=== PATIENT | female | born 1930 | race Caucasian/White ===

== ENCOUNTER 2017-02-15 10:26 | Inpatient (IN) ==
[2017-02-15] MEDS ORDERED: SODIUM CHLORIDE 0.9% 500 ML IV STA (11:00)
[2017-02-15] MEDS ORDERED: ONDANSETRON 4 MG/2 ML VIAL IV STA (11:00)
[2017-02-15 11:07] LABS: Basophils % 0.2 % (0.0-0.8); Eosinophils % 0.4 % (0.00-10.9); Hematocrit 40.1 VOL% (35.7-47.0); Hemoglobin 12.8 GM/DL (12.0-16.0); Immature Granulocytes % 0.5 %; Immature Granulocytes Absolute 0.04 #; Lymphocytes # 1.3 10*3/uL (1.4-4.0); Mean Corpuscular HGB Conc 31.9 GM/DL (32-36); Mean Corpuscular Hemoglobin 27 PG (27-34); Mean Corpuscular Volume 85.5 FL (87-102); Mean Platelet Volume 9.4 FL (9.6-12.0); Monocytes # 0.6 10*3/uL (0.11-0.8); Monocytes % 6.8 % (1.7-12.7); Neutrophils # 6.1 10*3/uL (1.4-7.4); Neutrophils % 76.1 % (38.7-73.9); Platelet Count 375 T/CUMM (130-400); Red Blood Count 4.69 MC/CUMM (3.8-5.5); Red Cell Distribution Width 15.2 % (9.3-17.3); White Blood Count 8.1 T/CUMM (4-12)
[2017-02-15 11:20] LABS: PT Patient Result 10.7 SECS
--- NOTE | 2017-02-15 11:24 | XRay Report ---
XR chest 1V portable Indication: SOB Comparison: None Technique: Single frontal view of the chest. Findings: Moderate cardiomegaly. Prominent hiatal hernia. Mild bibasilar atelectasis and small bilateral pleural fluid. Chronic change of the lungs. Diffuse osteopenia. IMPRESSION: As above. PROCEDURE INTERPRETED AT [facility] DEPARTMENT OF RADIOLOGY Final Report Signed by: Dr Sabas Jackson
[2017-02-15 11:32] LABS: Albumin 2.5 G/DL (3.4-5.0); Bilirubin,Total 0.4 MG/DL (0.2-1.0); Calcium 8.9 MG/DL (8.5-10.1); Magnesium 3.3 MG/DL (1.8-2.4); Osmolality,Calculated 271.2 MOS/KG (273-304); Potassium 4.8 MMOL/L (3.5-5.1); Total Protein 6.8 G/DL (6.4-8.3)
--- NOTE | 2017-02-15 11:35 | CT Report ---
CT abdomen pelvis wo con Indication: Coffee-ground emesis and abdominal distention Comparison: None Technique: Multiple axial tomographic images of the abdomen and pelvis were obtained without the use of intravenous contrast. Findings: Mild dependent change of the lungs present. Small bilateral pleural effusions. No worrisome focal hepatic abnormality. Gallbladder nondistended. Pancreatic atrophic change present. The spleen is grossly unremarkable. The bilateral adrenal glands are grossly unremarkable. The bilateral kidneys are grossly unremarkable. Uterus atrophic change versus partial hysterectomy. The urinary bladder is incompletely distended. Cystic-appearing left adnexal region measuring up to 4.3 cm in largest axial dimension. Colonic diverticulosis. No evidence of gastrointestinal obstruction. Prominent hiatal hernia. Moderate to large abdominal ascites. Peritoneal/mesenteric nodularity/implants noted consistent with diffuse intra-abdominal malignancy/metastasis. This includes under the right hemidiaphragm. Wedger nodular component within the left upper quadrant mesentery measures up to 2.6 cm. Omental disease/caking suspected. Some of the disease appears slightly calcified. Moderate atherosclerotic calcifications demonstrated. Diffuse osteopenia as well as degenerative change of the spine present. IMPRESSION: Limited exam secondary to lack of intravenous and oral contrast material. Moderate to large abdominal ascites. Peritoneal/mesenteric nodularity/implants noted consistent with diffuse intra-abdominal malignancy/metastasis. This includes under the right hemidiaphragm. Wedger nodular component within the left upper quadrant mesentery measures up to 2.6 cm. Omental disease/caking suspected. Cystic-appearing left adnexal region measuring up to 4.3 cm in largest axial dimension. Primary ovarian neoplasm not excluded. Recommend pelvic ultrasound for further evaluation. Colonic diverticulosis, hiatal hernia, and other detailed findings as above. The CT exam was performed using one or more of the following dose reduction techniques: Automated exposure control, adjustment of the mA and/or kV according to patient size, or use of iterative reconstruction technique. PROCEDURE INTERPRETED AT [facility] DEPARTMENT OF RADIOLOGY Final Report Signed by: Dr Sabas Jackson
--- NOTE | 2017-02-15 11:43 | EKG Report ---
Stationary ECG Study [facility] ER Test Date: 02/15/2017 11:43:41 AM Pat Name: HILLARY REDDING Department: Room: Gender: F Program Technician: : [id number] Requested by: Miles Pickard Order Number: [id number] Reading MD: GALO DELEON Intervals [place] Rate: 69 P: 88 AK: 149 QRS: 55 QRSD: 85 T: 68 QT: 398 QTc: 418 Interpretive Statements SINUS RHYTHM Electronically Signed On 02-15-17 17:38:06 CDT by GALO DELEON [email or web address]
--- NOTE | 2017-02-15 11:47 | Emergency Department Note ---
Benny Guerrero Rolonda, am scribing for, and in the presence of, Miles Calderon MD 11:14. Kvng Guerrero Phillip K, MD, personally performed the services described in this documentation, ascribed by Getachew Zapata in my presence, and it is both accurate and complete 143 . Arrival - Arrival Chief Complaint: Nausea/Vomiting/Diarrhea Stated Complaint: spitting up feces ED Nursing Triage Note: Pt c/o "spitting up feces" since last night, states her abd feels full. States her last BM was this am but a small amount, but has been having constipation since last week. Mode of Arrival: Wheelchair Limitations: No Limitations Source: Patient, Old Records Reviewed, RN Notes Reviewed - History of Present Illness HPI Narrative: Pt is an 86 y/o female who presents to the ED via wheelchair with a c/o "spitting up feces" with an onset of last night. Pt has a PMHx of diverticulitis and GERD; was scoped x5 years ago by Dr. Rios. She states that she "feels full", had soft dark stool diarrhea x2 last night and vomiting x1 day ago. Pt confirms cough but denies abdominal pain, dysuria, fever, and UTI. No other complaint/pain in ED. Onset (ago): day(s) Consistency: constant Severity: moderate Severity scale (1-10): 5 Quality: fullness Allergies/Adverse Reactions: Allergies Allergy/AdvReac Type Severity Reaction Status Date / Time morphine Allergy Unknown/Unable Verified 02/15/17 10:29 to obtain Home Medications: Home Medications Medication Instructions Recorded Confirmed Type Cyanocobalamin Inj [Vitamin B12 1,000 mcg SUBCUT DAILY 02/15/17 02/15/17 History Inj] Levothyroxine Tab [Synthroid Tab] 88 mcg PO DAILY 02/15/17 02/15/17 History Losartan/Hydrochlorothiazide 0.5 each PO DAILY 02/15/17 02/15/17 History [Losartan-Hctz 100-12.5 mg Tab] Magnesium Citrate 138 ml PO DAILY 02/15/17 02/15/17 History Metoprolol Tartrate 12.5 mg PO DAILY 02/15/17 02/15/17 History Omeprazole [Prilosec] 20 mg PO BID 02/15/17 02/15/17 History Polyethylene Glycol Powder 17 gm PO DAILY PRN 02/15/17 02/15/17 History [Miralax] Pravastatin Sodium 80 mg PO BEDTIME 02/15/17 02/15/17 History Review of System - Review of System 12 point system: reviewed and no additional remarkable complaints except as stated - Review of System Constitutional: Absent: chills, fever Eyes: Absent: pain Head/Ears/Nose/Throat: Absent: earache Respiratory: Present: cough Cardiovascular: Absent: chest pain, dyspnea on exertion Gastrointestinal: Absent: abdominal pain Genitourinary female: Absent: dysuria Musculoskeletal: Absent: arm pain, back pain, neck pain Medical,Surgical,& Family Hx - Medical History Cardio: History of: Hypertension Endocrine: History of: Dyslipidemia, Thyroid Disorder - Social History Smoking Status: Never smoker Exam Vital Signs: Vital Signs Temperature 97.7 F 02/15/17 10:39 Pulse Rate 70 02/15/17 10:39 Respiratory Rate 16 02/15/17 10:39 Blood Pressure 134/82 02/15/17 10:39 O2 Sat by Pulse Oximetry 97 02/15/17 10:27 - General General appearance: alert, in no apparent distress - Head Head exam: Present: atraumatic, normocephalic - Eye Eye exam: Present: PERRL, EOMI, other (pale conjunctiva) - ENT ENT exam: Present: mucous membranes moist. Absent: normal exam (upper grind hemasis), mucous membranes dry - Neck Neck exam: Present: full ROM. Absent: tenderness - Chest Chest inspection: Present: symmetric chest wall rise. Absent: tenderness - Cardiovascular Cardiovascular exam: Present: irregular rhythm - Abdominal Exam Abdominal exam: Present: distention, hyperactive bowel sounds. Absent: tenderness - Rectal Exam Rectal exam: Present: heme (+) stool - Extremities Exam Extremities exam: Present: full ROM. Absent: tenderness - Back Exam Back exam: Present: full ROM. Absent: tenderness - Neurological Exam Neurological exam: Present: alert, oriented X3, CN II-XII intact - Psychiatric Psychiatric exam: Present: normal affect, normal mood - Skin Skin exam: Present: warm, dry, intact, normal color. Absent: rash Results - Labs CBC & BMP: 02/15/17 10:43 02/15/17 10:43 Lab Results: I have reviewed the patients labs - EKG EKG results: interpreted by LIS, WNL, sinus rhythm - Diagnostic Findings Procedure: CT Abdomen and Pelvis: report reviewed by me (Large amount of ascites , 4 cm left adnexal mass possibly ovarian carcinoma, diffuse peritoneal metastasis) Disposition Clinical Impression: Upper GI bleed, Left tubo-ovarian mass, Ascites, Probable peritoneal metastasis Case discussed with: patient, patient's family Disposition: Still a Patient Condition: Guarded Additional Instructions: Admit to the hospitalist.
--- NOTE | 2017-02-15 12:28 | Hospitalist History & Physical ---
<Maral Christiansonda - Last Filed: 02/15/17 12:14> Assessment and Plan (1) Ascites Status: Acute Assessment and plan: Per CT scan report at the time of admission noted moderate to large abdominal ascites. In addition the patient was noted to have peritoneal and mesenteric nodularity/implants which are largely consistent with diffuse intra-abdominal malignancy/metastasis. The patient is in no obvious distress at this time however, we will consult GI to evaluate and assist. Will obtain abdominal ultrasound; may require interventional radiology for thoracentesis soon. Current Visit: Yes (2) Upper GI bleed Status: Acute Assessment and plan: Heme positive stools and emesis noted in the ED. we will consult GI to evaluate and assist during the clinical encounter. We will keep the patient n.p.o., start PPIs, and DVT prophylaxis. Current Visit: Yes History of Present Illness Chief complaint: Abdominal distention, nausea and vomiting. History of present illness: This is a very pleasant 86-year-old female that presented to the ED at [facility] this morning for the evaluation of nausea, diarrhea, vomiting, and abdominal distention. Patient has a medical history significant for: Hypertension, hypothyroidism, GERD, hyperlipidemia, vitamin B12 deficiency , and constipation Patient has a surgical history significant for: Left knee surgery and tonsillectomy. The patient reported the onset of symptoms several weeks prior to presentation. She reports that she started experiencing some swelling in her stomach however it has worsened as time progressed. The patient reported that she had an onset of vomiting on last night. She reports that the emesis "resembled feces"; however denied abdominal pain and tenderness. Pertinent positives include: Nausea, vomiting, diarrhea, abdominal distention; pertinent negatives include: Diaphoresis, syncope, abdominal tenderness, abdominal pain, dysuria, anuria, and constipation. At the time of ED presentation, the patient was assessed. Her vital signs were stable at the time of ED presentation. Labs were obtained at the time of ED presentation; complete blood count noted a white blood cell count 8.1, hemoglobin 12.8, hematocrit 40.1, platelet count at 375, neutrophil % 76.1, MVP 9.4, lymphocytes % 16.0, lymphocytes #at 1.0. Coagulation panel reported an INR at 1.0 and PT 10.7. Chemistry profile reported a sodium at 134, potassium 4.8, chloride 99, carbon dioxide 27, BUN 24, creatinine 1.10, glucose 102, calculated osmolality 271.2, magnesium 3.3, total bilirubin 0.40, AST 16, ALT 14 , alkaline phosphatase 134, albumin 2.5, globulin 4.3. Chest x-ray reported mild cardiomegaly, prominent hiatal hernia, mid bibasilar atelectasis small bilateral pleural fluid, diffuse osteopenia, and chronic change of the lungs. CT abdomen and pelvis reported the followin. Moderate to large abdominal ascites, 2. Peritoneal/mesenteric nodularity/implant noted consistent with diffuse intra-abdominal malignancy/metastasis; this includes right under the hemidiaphragm, 3. Pump Tender nodular component within the left upper quadrant mesentery measures up to 2.6 cm, 4. Omental disease/caking suspected, 5. Cystic appearing left adnexal region measuring up to 4.3 cm in largest axial dimension, 6. Primary ovarian neoplasm not excluded, 7. Colonic diverticulosis and hiatal hernia. After brief discussion with both Dr. Calderon and Dr. Sidhu, the patient will be admitted to the hospitalist services for continuation of care. Due to the severe findings noted on the CT abdomen and pelvis, we will consult hematology /oncology and GI to evaluate and assist during the clinical encounter. Medications were reviewed and reconciled. CODE STATUS was discussed ; patient is a FULL CODE. Home Medications Medication Instructions Recorded Confirmed Type Cyanocobalamin Inj [Vitamin B12 1,000 mcg SUBCUT DAILY 02/15/17 02/15/17 History Inj] Levothyroxine Tab [Synthroid Tab] 88 mcg PO DAILY 02/15/17 02/15/17 History Losartan/Hydrochlorothiazide 0.5 each PO DAILY 02/15/17 02/15/17 History [Losartan-Hctz 100-12.5 mg Tab] Magnesium Citrate 138 ml PO DAILY 02/15/17 02/15/17 History Metoprolol Tartrate 12.5 mg PO DAILY 02/15/17 02/15/17 History Omeprazole [Prilosec] 20 mg PO BID 02/15/17 02/15/17 History Polyethylene Glycol Powder 17 gm PO DAILY PRN 02/15/17 02/15/17 History [Miralax] Pravastatin Sodium 80 mg PO BEDTIME 02/15/17 02/15/17 History Allergies Allergy/AdvReac Type Severity Reaction Status Date / Time morphine Allergy Unknown/Unable Verified 02/15/17 10:29 to obtain Medical,Surgical,& Family Hx - Medical History Cardio: History of: Hypertension Endocrine: History of: Dyslipidemia, Thyroid Disorder - Social History Smoking Status: Never smoker 12 point system: reviewed and no additional remarkable complaints except as stated Exam - Constitutional Vitals: Period Temp Pulse Resp BP Sys/Lim Pulse Ox Last 24 Hr 97.7 F-97.7 F 70-70 16-16 134-134/82-82 97 General appearance: normal weight, no acute distress - Head Head exam: Present: normal inspection, normocephalic, atraumatic - Eye Eye exam: Present: EOMI. Absent: conjunctival injection Pupils: Present: ONI, normal accommodation - ENT ENT exam: Present: normal exam, normal external ear exam, normal oropharynx - Neck Neck exam: Present: normal inspection. Absent: lymphadenopathy, meningismus, thyromegaly - Respiratory Respiratory exam: Present: decreased breath sounds. Absent: rales, rhonchi, stridor, wheezes - Cardiovascular Cardiovascular exam: Present: regular rate and rhythm. Absent: carotid bruit, diastolic murmur, gallop, JVD, rubs, systolic murmur - GI/Abdominal GI/Abdominal exam: Present: ascites, distended. Absent: mass, tenderness - Extremities Exam Extremities exam: Present: normal inspection, normal capillary refill, full ROM , calf tenderness, edema - Back Exam Back exam: Present: normal inspection - Neurological Exam Neurological exam: Present: alert, oriented X3, CN II-XII intact - Psychiatric Psychiatric exam: Present: normal affect, normal mood - Skin Skin exam: Present: normal color, warm, dry Results - Labs CBC & BMP: 02/15/17 10:43 02/15/17 10:43 Lab Results: I have reviewed the past 24 hour labs <Erickson Sidhu - Last Filed: 02/15/17 14:29> Assessment and Plan (1) Left tubo-ovarian mass Status: Acute Assessment and plan: Impression: 1. 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 Platelet count and INR are normal. We will get a PTT and consult interventional radiology for paracentesis. This does not appear to be a primary GI problem. Once we have a tissue diagnosis, we may need to get COMMERCIAL PEST CONTROL TECHNICIAN involved, with the understanding that she may need to see a COMMERCIAL PEST CONTROL TECHNICIAN oncologist over in [place]. I am seeing this patient in collaboration with the nurse practitioner, and this note represents a shared visit. I have seen and examined the patient, and agree with the findings as documented by the nurse practitioner, except as described in my additions to this document. This note was completed using [employer] voice recognition software. There may be windows system admin errors as a result. Current Visit: Yes History of Present Illness History of present illness: Ms. William is a 86 year old female The patient has had a several week history of abdominal distention, constipation , emesis, and anorexia. She was told that she was constipated and needed some laxatives when she saw her local clinician earlier in the month. She took laxatives without any relief. She presented to the emergency room for evaluation of the ongoing symptoms, and a CT scan of the abdomen showed ascites with some peritoneal and mesenteric nodules and a cystic lesion in the left adnexa. Exam - Constitutional Vitals: Period Temp Pulse Resp BP Sys/Lim Pulse Ox Last 24 Hr 97.7 F-97.7 F 68-70 16-17 132-134/77-82 97-97 Results - Labs CBC & BMP: 02/15/17 10:43 02/15/17 10:43
--- NOTE | 2017-02-15 17:03 | Ultrasound Report ---
Exam: US abdomen Date: 02/15/2017 1:53 PM Comparison: CT 02/15/2017 Indication: Ascites Technique:[Multiple transabdominal real-time scans were obtained of the abdomen. Color flow scans obtained. Ultrasound images were captured and stored.] Findings: No gallstones identified. The wall of the gallbladder measures 2.8 mm. CBD is normal in size measuring 5.1 mm. The liver has a lobulated contour with no obvious masses or enlargement. The spleen is normal in size with a splenic index of 216. Right kidney measures 94 mm length. Left kidney measures 90 mm in length with no mass or hydronephrosis. The visualized pancreas and aorta have an unremarkable appearance. Portions of the pancreas, IVC, and aorta including the aortic bifurcation are obscured by bowel gas. Color flow documented in the portal vein with hepatopedal flow. Four-quadrant ascites measuring 89 mm in depth in the right upper quadrant, 106 mm in depth in the right lower quadrant, and 97 mm in depth in the left upper quadrant and left lower quadrant. Impression: No gallstones are identified. The wall of the gallbladder appears borderline in thickness which can be seen with the significant ascites, heart failure, liver failure, acute cholecystitis, etc. The liver has a lobulated contour which can be seen with possible hepatocellular disease such as cirrhosis. Significant four-quadrant ascites. The Ultrasound images were captured and stored. PROCEDURE INTERPRETED AT [facility] DEPARTMENT OF RADIOLOGY Final Report Signed by: Dr. Charlee Ann
[2017-02-15] MEDS: SODIUM CHLORIDE 0.9% 1,000 ML IV SCH (18:00)
[2017-02-15] MEDS: PANTOPRAZOLE 40 MG TABLET PO SCH (21:10)
[2017-02-16] MEDS: SODIUM CHLORIDE 0.9% 1,000 ML IV SCH ×2 (05:03→18:16)
[2017-02-16 05:48] LABS: Basophils % 0.1 % (0.0-0.8); Eosinophils # 0.1 10*3/uL (0.0-0.87); Eosinophils % 1.1 % (0.00-10.9); Hematocrit 33.5 VOL% (35.7-47.0); Hemoglobin 10.5 GM/DL (12.0-16.0); Immature Granulocytes % 0.4 %; Immature Granulocytes Absolute 0.03 #; Lymphocytes # 1.5 10*3/uL (1.4-4.0); Mean Corpuscular HGB Conc 31.3 GM/DL (32-36); Mean Corpuscular Hemoglobin 27 PG (27-34); Mean Corpuscular Volume 86.1 FL (87-102); Mean Platelet Volume 9.8 FL (9.6-12.0); Monocytes # 0.6 10*3/uL (0.11-0.8); Monocytes % 7.4 % (1.7-12.7); Neutrophils # 5.3 10*3/uL (1.4-7.4); Platelet Count 458 T/CUMM (130-400); Red Blood Count 3.89 MC/CUMM (3.8-5.5); Red Cell Distribution Width 15.3 % (9.3-17.3); White Blood Count 7.4 T/CUMM (4-12)
[2017-02-16] MEDS: LEVOTHYROXINE 88 MCG TABLET PO SCH (06:20)
[2017-02-16 06:23] LABS: Alanine Aminotransferase 12 U/L (13-56); Albumin 2.3 G/DL (3.4-5.0); Alkaline Phosphatase 110 U/L (45-117); Aspartate Amino Transferase 16 U/L (0-37); Bilirubin,Total < 0.39 MG/DL (0.2-1.0); Blood Urea Nitrogen 22 MG/DL (7-18); Calcium 8.4 MG/DL (8.5-10.1); Glucose 94 MG/DL (74-106); Magnesium 2.8 MG/DL (1.8-2.4); Osmolality,Calculated 277.7 MOS/KG (273-304); Sodium 138 MMOL/L (136-145); Total Protein 6.2 G/DL (6.4-8.3)
--- NOTE | 2017-02-16 09:39 | Ultrasound Report ---
US paracentesis abd w/image Indication: New onset ascites. Ultrasound-guided paracentesis Description: A formal timeout was performed. Maximum sterile barrier technique was used. The right lower quadrant was prepped and draped in sterile fashion. Under sonographic guidance, a 6 German pigtail catheter was advanced into the ascites using trocar technique. A captured sonographic image documents needle position. The needle was removed. Through the catheter, we obtained a total of 4500 cc of straw-colored ascites. No additional fluid could be obtained. Therefore, the catheter was removed. A bandage was placed at the puncture site. The patient tolerated the procedure well. Impression: Ultrasound-guided paracentesis. PROCEDURE INTERPRETED AT [facility] DEPARTMENT OF RADIOLOGY Final Report Signed by: Navin Padron M.D.
[2017-02-16] MEDS: METOPROLOL TARTRATE 25 MG TABLET PO SCH (09:46)
[2017-02-16] MEDS: LOSARTAN 50 MG TABLET PO SCH (09:46)
[2017-02-16] MEDS: PANTOPRAZOLE 40 MG TABLET PO SCH ×2 (09:46→20:45)
[2017-02-16] MEDS: hydroCHLOROthiazide 25 MG TABLET PO SCH (09:46)
[2017-02-16 10:06] LABS: Neutrophils,Peritoneal Fluid 10 %
[2017-02-16 10:08] LABS: RBC,Peritoneal Fluid 2304 T/CUMM
[2017-02-16] MEDS: CYANOCOBALAMIN 1000 MCG/1 ML VIAL SUBCUT SCH (13:19)
--- NOTE | 2017-02-16 14:18 | Hospitalist Progress Note ---
Assessment and Plan (1) Left tubo-ovarian mass Status: Acute Assessment and plan: Impression: 1. 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 This note was completed using [facility] voice recognition software. There may be brake operator helper errors as a result. Current Visit: Yes Hospitalist: Subjective Interval history: Follow-up probable ovarian cancer with malignant ascites. The patient underwent paracentesis today, with over 4 L of fluid being removed. She feels better. The paracentesis site continues to leak a bit. We discussed next steps, which may include oncology or ORTHOTIST consultation. However, we will wait until we have a pathology report before proceeding with further consultation request. Family understands this rationale. Exam - Constitutional Vitals: Period Temp Pulse Resp BP Sys/Lim Pulse Ox Last 24 Hr 97.5 F-98.5 F 75-85 15-79 118-167/50-68 91-97 Heart is regular with no murmur or gallop. Lungs are clear with no rales or wheezes. Abdomen seems less distended, and is less tender to palpation. She is awake and alert Results - Labs CBC & BMP: 02/16/17 05:05 02/16/17 05:05 Lab Results: I have reviewed the past 24 hour labs Quality Measures - VTE Contraindication to Pharmacological VTE Prophylaxis: Active Bleeding
[2017-02-17] MEDS: LEVOTHYROXINE 88 MCG TABLET PO SCH (06:21)
[2017-02-17] MEDS: SODIUM CHLORIDE 0.9% 1,000 ML IV SCH ×2 (06:38→18:20)
[2017-02-17] MEDS: METOPROLOL TARTRATE 25 MG TABLET PO SCH (08:37)
[2017-02-17] MEDS: hydroCHLOROthiazide 25 MG TABLET PO SCH (08:37)
[2017-02-17] MEDS: PANTOPRAZOLE 40 MG TABLET PO SCH ×2 (08:37→20:44)
[2017-02-17] MEDS: LOSARTAN 50 MG TABLET PO SCH (08:37)
[2017-02-17] MEDS: CYANOCOBALAMIN 1000 MCG/1 ML VIAL SUBCUT SCH (08:38)
[2017-02-17] MEDS: ALUMINUM/MAGNES/SIMETH MAX STR 30 ML UDCUP PO PRN (12:08)
[2017-02-18] MEDS: LEVOTHYROXINE 88 MCG TABLET PO SCH (06:45)
--- NOTE | 2017-02-18 07:21 | Hospitalist Progress Note ---
Assessment and Plan (1) Left tubo-ovarian mass Status: Acute Assessment and plan: Impression: 1. 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 Family wondered about oncology consultation. We will wait on pathology report before consulting them. This note was completed using [employer] voice recognition software. There may be carpenter rough errors as a result. Current Visit: Yes Hospitalist: Subjective Interval history: Follow-up probable ovarian cancer. The patient continues to have some leakage at the site of the paracentesis. Chemistries are consistent with an exudate, and we are still awaiting cytology. Patient feels pretty well. She is up and about in the room. Family is worried that she has not had a bowel movement yet. Appetite seems to be improving since she has had the fluid removed. Exam - Constitutional Vitals: Period Temp Pulse Resp BP Sys/Lim Pulse Ox Last 24 Hr 97.3 F-98.7 F 67-74 18-20 107-123/47-60 91-96 She is awake and alert. Abdomen seems less tense. There is some serous drainage on the bandage. Results - Labs CBC & BMP: 02/16/17 05:05 02/16/17 05:05 Quality Measures - VTE Contraindication to Pharmacological VTE Prophylaxis: Active Bleeding
[2017-02-18] MEDS: SODIUM CHLORIDE 0.9% 1,000 ML IV SCH ×2 (09:18→22:05)
[2017-02-18] MEDS: METOPROLOL TARTRATE 25 MG TABLET PO SCH (09:20)
[2017-02-18] MEDS: LOSARTAN 50 MG TABLET PO SCH (09:20)
[2017-02-18] MEDS: PANTOPRAZOLE 40 MG TABLET PO SCH ×2 (09:20→20:11)
[2017-02-18] MEDS: hydroCHLOROthiazide 25 MG TABLET PO SCH (09:21)
[2017-02-18] MEDS: CYANOCOBALAMIN 1000 MCG/1 ML VIAL SUBCUT SCH (09:22)
--- NOTE | 2017-02-18 09:26 | Hospitalist Progress Note ---
Assessment and Plan (1) Left tubo-ovarian mass Status: Acute Assessment and plan: Impression: 1. 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 This note was completed using [employer] voice recognition software. There may be master steam yacht errors as a result. Current Visit: Yes Hospitalist: Subjective Interval history: Follow-up probable ovarian cancer with malignant ascites. We are still waiting on a pathology report. The patient feels fine. The puncture site in the right lower quadrant has stopped oozing. Her bowels move this morning, and she reports that the stool was black. Exam - Constitutional Vitals: Period Temp Pulse Resp BP Sys/Lim Pulse Ox Last 24 Hr 97.3 F-98.7 F 67-74 18-20 111-123/55-60 92-96 Vital signs are noted above. Heart is regular with no murmur or gallop. Lungs are clear with no rales or wheezes. Abdomen is protuberant. Puncture site in the right lower quadrant looks good. Dressing is dry. She is awake and alert Results - Labs CBC & BMP: 02/16/17 05:05 02/16/17 05:05 Quality Measures - VTE Contraindication to Pharmacological VTE Prophylaxis: Active Bleeding
[2017-02-18 11:07] LABS: Basophils % 0.1 % (0.0-0.8); Eosinophils # 0.1 10*3/uL (0.0-0.87); Eosinophils % 1.5 % (0.00-10.9); Hematocrit 30.7 VOL% (35.7-47.0); Hemoglobin 9.5 GM/DL (12.0-16.0); Immature Granulocytes % 0.6 %; Immature Granulocytes Absolute 0.04 #; Lymphocytes # 1.1 10*3/uL (1.4-4.0); Lymphocytes % 14.7 % (21.3-54.2); Mean Corpuscular HGB Conc 30.9 GM/DL (32-36); Mean Corpuscular Hemoglobin 27 PG (27-34); Mean Corpuscular Volume 86.2 FL (87-102); Mean Platelet Volume 9.6 FL (9.6-12.0); Monocytes # 0.5 10*3/uL (0.11-0.8); Monocytes % 7.1 % (1.7-12.7); Neutrophils # 5.5 10*3/uL (1.4-7.4); Platelet Count 400 T/CUMM (130-400); Red Blood Count 3.56 MC/CUMM (3.8-5.5); Red Cell Distribution Width 15.3 % (9.3-17.3); White Blood Count 7.2 T/CUMM (4-12)
--- NOTE | 2017-02-18 12:15 | Pathology Report from [facility] ---
[facility] [place] : [id number] PATIENT NAME : Karl William ORDERING DR : NIMCO ROBERTSON MD CLINICAL HX: Paracentesis POST-OP DX: Same SPECIMEN INFO: Fluid,Paracentesis - 1000 mls straw-colored, cloudy CLASS: V CLASS COMMENTS: AdenocarcinomaCELL BLOCK: Same; CK7+ CK20- TTF1- CDX2- calretinin+/- CA19-9- GATA3- CA125+ ER- . Consider ovarian primary. CLASS LEGEND: CLASS 0 Material inadequate for diagnosis because of (see comment) CLASS I Absence of atypical or abnormal cells CLASS II Atypical Cytology but no evidence of malignancy CLASS III Cytology suggestive of but not conclusive for malignancy CLASS IV Cytology strongly suggestive of malignancy CLASS V Cytology conclusive for malignancy COLLECTED DATE: 02/16/2017 [facility] [place] DATE: 02/18/2017 ELECTRONICALLY SIGNED BY: Guadalupe Levin M.D. 02/18/2017 - 7:22:40 MTDMichael
[2017-02-18] MEDS: ONDANSETRON 4 MG/2 ML VIAL IV PRN (14:03)
--- NOTE | 2017-02-18 15:14 | Event Note ---
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 We will ask oncology for their opinion. I am not sure if the patient can stay here and received chemotherapy, or she will need to go to see a MACHINE OPERATOR SLITTER TECHNICIAN oncologist in [place]. She also noted a black stool this morning. She is dropped her hemoglobin 3 g since hospitalization. I will check a stool for occult blood. If this is positive, she may need GI evaluation.
[2017-02-19] MEDS: CYANOCOBALAMIN 1000 MCG/1 ML VIAL SUBCUT SCH (08:48)
[2017-02-19] MEDS: LEVOTHYROXINE 88 MCG TABLET PO SCH (08:49)
[2017-02-19] MEDS: PANTOPRAZOLE 40 MG TABLET PO SCH ×2 (08:49→21:13)
[2017-02-19] MEDS: METOPROLOL TARTRATE 25 MG TABLET PO SCH (08:49)
[2017-02-19] MEDS: hydroCHLOROthiazide 25 MG TABLET PO SCH (08:49)
[2017-02-19] MEDS: LOSARTAN 50 MG TABLET PO SCH (08:49)
--- NOTE | 2017-02-19 09:39 | Hospitalist Progress Note ---
Assessment and Plan (1) Left tubo-ovarian mass Status: Acute Assessment and plan: Impression: 1. Metastatic ovarian carcinoma with malignant ascites Plan: Await oncology consultation. This note was completed using [employer] voice recognition software. There may be blood bank laboratory technologist errors as a result. Current Visit: Yes Hospitalist: Subjective Interval history: Follow-up ovarian adenocarcinoma. We are waiting on the oncology consult. The patient says that she has got a little more pain in her abdomen. She has not had any more stools since she reported the black stool yesterday. She is tolerating her diet. Exam - Constitutional Vitals: Period Temp Pulse Resp BP Sys/Lim Pulse Ox Last 24 Hr 97.3 F-98.9 F 58-76 11-22 104-126/51-85 90-98 Vital signs are noted above. Heart is regular with no murmur or gallop. Lungs are clear with no rales or wheezes. Abdomen is protuberant or slightly distended. There is some minimal tenderness , but it is not very impressive. She is awake and alert Results - Labs CBC & BMP: 02/18/17 10:41 02/16/17 05:05 Quality Measures - VTE Contraindication to Pharmacological VTE Prophylaxis: Active Bleeding
--- NOTE | 2017-02-19 09:48 | Oncology Consult Note ---
Assessment and Plan (1) Ovarian cancer Status: Acute Assessment and plan: I had a lengthy discussion today with Ms. Mays and her daughter. I explained to her that she has advanced ovarian cancer that spread throughout her entire abdomen and pelvis. She seems to be a fairly well-functioning 86-year-old that lives alone and does extensive yard work and drives. I told him that ovarian cancer is normally very sensitive to chemotherapy and that she may get a good response and we can possibly add 1-2 more years of quality life. Without treatment she will only have probably a few months at best as this tumor will continue to progress and cause complete GI shutdown. It sounds like they are leaning toward doing chemotherapy but I told him to take the next 24-48 hours to the side. If she knows she does want to do chemotherapy I will likely start it while she is in the hospital before she is discharged home. I will order a contrasted CT scan since she does not have one of these yet. We will hold oral contrast given her GI symptoms. I will check iron studies and tumor markers. If she is iron deficient I will likely give her infusional iron since her GI track is not likely absorbing many nutrients at this point with the extensive malignant involvement. Current Visit: Yes (2) Peritoneal carcinoma Status: Acute Current Visit: Yes (3) Malignant ascites Status: Acute Current Visit: Yes History of Present Illness History of present illness: Ms. William is a 86 year old female with no significant past medical history who was admitted with abdominal fullness and nausea vomiting [address] scan to the ER showed diffuse abdominal disease with a large left adnexal mass. There is omental caking and peritoneal studding with large ascites. She underwent paracentesis of 1 L of fluid with pathology returning back as adenocarcinoma consistent with ovarian origin. Oncology has been consulted to discuss her options with her and make a treatment plan. She states she has had issues with nausea and vomiting for years. She notes that her abdomen has become distended just over the last 3-4 weeks. Her appetite is decreased at the same time. She does report dark vomitus but denies any dark tarry stool. Her hemoglobin has slowly trended down over the last 3-4 days. Home Medications Medication Instructions Recorded Confirmed Type Cyanocobalamin Inj [Vitamin B12 1,000 mcg SUBCUT DAILY 02/15/17 02/15/17 History Inj] Levothyroxine Tab [Synthroid Tab] 88 mcg PO DAILY 02/15/17 02/15/17 History Losartan/Hydrochlorothiazide 0.5 each PO DAILY 02/15/17 02/15/17 History [Losartan-Hctz 100-12.5 mg Tab] Magnesium Citrate 138 ml PO DAILY 02/15/17 02/15/17 History Metoprolol Tartrate 12.5 mg PO DAILY 02/15/17 02/15/17 History Omeprazole [Prilosec] 20 mg PO BID 02/15/17 02/15/17 History Polyethylene Glycol Powder 17 gm PO DAILY PRN 02/15/17 02/15/17 History [Miralax] Pravastatin Sodium 80 mg PO BEDTIME 02/15/17 02/15/17 History Allergies Allergy/AdvReac Type Severity Reaction Status Date / Time morphine Allergy Unknown/Unable Verified 02/15/17 10:29 to obtain Medical,Surgical,& Family Hx - Medical History Cardio: History of: Hypertension Endocrine: History of: Dyslipidemia, Thyroid Disorder Gastrointestinal: History of: Diverticulitis/ Diverticulosis, GERD, GI Problems (esophagus stretch) Musculoskeletal: History of: Musculoskeletal Problems (back pain) - Family History Family History: Denies;: Family Diabetes, Family Heart Disease, Family Hypertension - Social History Smoking Status: Never smoker Frequency of Alcohol Use: None Type of Drug Use: None 12 point system: reviewed and no additional remarkable complaints except as stated - Constitutional Constitutional: Present: fatigue, weight loss - Cardiovascular Cardiovascular ROS IM: Absent: chest pain, orthopnea - Respiratory Respiratory: Present: dyspnea. Absent: cough, hemoptysis - Gastrointestinal Gastrointestinal: Present: abdominal pain, early satiety, nausea, vomiting. Absent: diarrhea Exam - Constitutional Vitals: Period Temp Pulse Resp BP Sys/Lim Pulse Ox Last 24 Hr 97.3 F-98.9 F 58-76 11-22 104-126/51-85 90-98 General appearance: normal weight, no acute distress - Head Head Exam: Present: normocephalic, atraumatic - Eye Eye Exam: Present: EOMI Pupils: Present: PERRL - ENT ENT exam: Present: normal exam, normal oropharynx - Neck Neck exam: Absent: lymphadenopathy, thyromegaly - Respiratory Respiratory exam: Present: CTAB. Absent: wheezes - Cardiovascular Cardiovascular exam: Present: RRR. Absent: JVD, systolic murmur - GI/Abdominal GI/Abdominal exam: Present: ascites, distended, soft. Absent: firm, mass, tenderness - Neurological Exam Neurological exam: Present: alert, oriented X3, CN II-XII intact - Psychiatric Psychiatric exam: Present: normal affect, normal mood - Skin Skin exam: Present: warm, dry Results - Labs CBC & BMP: 02/18/17 10:41 02/16/17 05:05 Lab Results: I have reviewed the past 24 hour labs Quality Measures - VTE Contraindication to Pharmacological VTE Prophylaxis: Active Bleeding
[2017-02-19 11:13] LABS: % Iron Saturation 12.9 % (18-50); Ferritin 69.7 ng/ml (8-252)
[2017-02-19] MEDS: SODIUM CHLORIDE 0.9% 1,000 ML IV SCH (11:38)
--- NOTE | 2017-02-19 13:59 | CT Report ---
History: Ovarian cancer Date: 02/19/2017 Study: CT chest, abdomen, and pelvis with IV contrast Comparison exam: Noncontrast CT abdomen and pelvis February 15, 2017 Technique: Spiral CT sections were obtained from the lung apices to the pubic symphysis following oral contrast and 100 mL Omnipaque [address] exam was performed using one or more of the following dose reduction techniques: Automated exposure control, adjustment of the mA and/or kV according to patient size, or use of iterative reconstruction technique. CT chest: There is mild bilateral pleural effusion. There is some dependent atelectasis within the lower lobes. There is no discrete pulmonary mass to specifically suggest pulmonary metastatic disease. There is no lymphadenopathy within the mediastinum by short axis diameter criteria. There is moderate coronary artery calcification with involvement of the left anterior descending and left circumflex coronary arteries. There is a small right paratracheal lymph node. There is a large hiatal hernia. There is moderate thoracic spondylosis. Impression: There is mild bilateral pleural effusion which could potentially be malignant in nature. There is no evidence of pulmonary metastatic disease. There is no mediastinal lymphadenopathy by size criteria. Coronary artery calcification. CT abdomen: There is omental caking compatible with peritoneal carcinomatosis. There is mild perihepatic and perisplenic ascites with ascites also in either paracolic gutter. The liver, bile ducts, spleen, pancreas, adrenal glands, and kidneys are normal aside from a rounded 12 mm simple cyst in the lower pole right kidney. There is extensive diverticulosis without tracy diverticulitis. There is no obvious retroperitoneal lymphadenopathy. Degenerative disc disease of the lumbar spine is present. There is no aortic aneurysm. There is no tracy bowel obstruction. There is nonspecific body wall edema which could be related to anasarca. CT pelvis: Evaluation of the pelvis is difficult due to the lack of oral contrast at the pelvic level. There is a 4.1 cm left adnexal water density area which could represent ovarian cyst. Impression: Peritoneal carcinomatosis. Potential 4.1 cm left ovarian cyst. PROCEDURE INTERPRETED AT [facility] DEPARTMENT OF RADIOLOGY Final Report Signed by: Dr. Lesli Osei
[2017-02-20] MEDS: SODIUM CHLORIDE 0.9% 1,000 ML IV SCH ×2 (00:58→19:59)
[2017-02-20 04:29] LABS: Basophils % 0.3 % (0.0-0.8); Eosinophils # 0.1 10*3/uL (0.0-0.87); Eosinophils % 1.8 % (0.00-10.9); Hematocrit 28.8 VOL% (35.7-47.0); Hemoglobin 9.3 GM/DL (12.0-16.0); Immature Granulocytes % 0.7 %; Immature Granulocytes Absolute 0.05 #; Lymphocytes # 1.6 10*3/uL (1.4-4.0); Lymphocytes % 23.2 % (21.3-54.2); Mean Corpuscular HGB Conc 32.3 GM/DL (32-36); Mean Corpuscular Hemoglobin 27 PG (27-34); Mean Platelet Volume 9.2 FL (9.6-12.0); Monocytes # 0.5 10*3/uL (0.11-0.8); Monocytes % 7.7 % (1.7-12.7); Neutrophils # 4.7 10*3/uL (1.4-7.4); Neutrophils % 66.3 % (38.7-73.9); Platelet Count 405 T/CUMM (130-400); Red Blood Count 3.39 MC/CUMM (3.8-5.5); Red Cell Distribution Width 15.2 % (9.3-17.3)
[2017-02-20 05:02] LABS: Calcium 8.2 MG/DL (8.5-10.1); Osmolality,Calculated 273.7 MOS/KG (273-304); Potassium 4.3 MMOL/L (3.5-5.1)
[2017-02-20] MEDS: LEVOTHYROXINE 88 MCG TABLET PO SCH (09:09)
[2017-02-20] MEDS: hydroCHLOROthiazide 25 MG TABLET PO SCH ×2 (09:09→10:08)
[2017-02-20] MEDS: LOSARTAN 50 MG TABLET PO SCH ×2 (09:09→10:07)
[2017-02-20] MEDS: METOPROLOL TARTRATE 25 MG TABLET PO SCH ×2 (09:11→10:05)
[2017-02-20] MEDS: CYANOCOBALAMIN 1000 MCG/1 ML VIAL SUBCUT SCH (09:12)
[2017-02-20] MEDS: PANTOPRAZOLE 40 MG TABLET PO SCH ×2 (09:12→20:48)
[2017-02-20] MEDS ORDERED: MAGNESIUM CITRATE 300 ML BOTTLE PO ONE (09:25)
--- NOTE | 2017-02-20 09:28 | Hospitalist Progress Note ---
Assessment and Plan (1) Ovarian cancer Status: Acute Assessment and plan: Impression: 1. Ovarian cancer 2. Hypertension; blood pressure is running a little low. 3. Constipation Plan: Magnesium citrate for constipation. Transfer to oncology unit for institution of chemotherapy. Discharge per oncology. This note was completed using [employer] voice recognition software. There may be swiss type screw machine operator errors as a result. Current Visit: Yes Qualifiers: Laterality: left Qualified Code(s): C56.2 - Malignant neoplasm of left ovary Hospitalist: Subjective Interval history: Follow-up ovarian carcinoma. The patient has decided to try chemotherapy. She understands that it will not be curative, and she also tells me that she does not want to continue chemotherapy if it has a negative impact on her quality of life. The plan will be to transfer her to the fourth floor today, give her the first dose of chemotherapy, watch her overnight, and consider discharge in the morning. Her only other complaint is constipation. Her bowels have not moved in several days. She also was concerned that her abdomen might be getting a little larger. I reviewed her CT. I do not see a reaccumulation of the ascites, but she has quite a bit of stool in the colon. Exam - Constitutional Vitals: Period Temp Pulse Resp BP Sys/Lim Pulse Ox Last 24 Hr 97.1 F-99.4 F 65-78 16-20 103-122/46-63 90-93 Vital signs are noted above. Heart is regular with no murmur or gallop. Lungs are clear with no rales or wheezes. Abdomen is protuberant with good bowel sounds. She is awake and alert Results - Labs CBC & BMP: 02/20/17 04:11 02/20/17 04:11 Lab Results: I have reviewed the past 24 hour labs Quality Measures - VTE Contraindication to Pharmacological VTE Prophylaxis: Active Bleeding
--- NOTE | 2017-02-20 09:36 | Oncology Progress Note ---
Assessment and Plan (1) Peritoneal carcinoma Status: Acute Current Visit: Yes (2) Malignant ascites Status: Acute Current Visit: Yes (3) Ovarian cancer Status: Acute Current Visit: Yes Oncology Subjective PN Interval history: This is an 86-year-old white female with newly diagnosed ovarian cancer with peritoneal spread and omental caking who would like to begin palliative chemotherapy. Repeat CT scan done yesterday with IV contrast did not show any evidence of disease outside the abdominal cavity. Her CA 125 is still pending. She is discussed her situation with her family and they are all in agreement to begin palliative chemotherapy with the mindset that if she has any problems with treatment we will stop abruptly. My plan is to give her Taxol plus carboplatin today at a 25% dose reduction. We will then watch her overnight and consider discharge tomorrow. Exam - Constitutional Vitals: Period Temp Pulse Resp BP Sys/Lim Pulse Ox Last 24 Hr 97.1 F-99.4 F 65-78 16-20 103-122/46-63 90-93 General appearance: normal weight, no acute distress - Head Head Exam: Present: normocephalic, atraumatic - Eye Eye Exam: Present: EOMI Pupils: Present: PERRL - ENT ENT exam: Present: normal exam, normal oropharynx - Neck Neck exam: Absent: lymphadenopathy, thyromegaly - Respiratory Respiratory exam: Present: CTAB. Absent: wheezes - Cardiovascular Cardiovascular exam: Present: RRR. Absent: JVD, systolic murmur - GI/Abdominal GI/Abdominal exam: Present: ascites, distended, soft. Absent: firm, mass - Neurological Exam Neurological exam: Present: alert, oriented X3 - Psychiatric Psychiatric exam: Present: normal affect, normal mood - Skin Skin exam: Present: warm, dry Results - Labs CBC & BMP: 02/20/17 04:11 02/20/17 04:11 Lab Results: I have reviewed the past 24 hour labs Quality Measures - VTE Contraindication to Pharmacological VTE Prophylaxis: Active Bleeding
[2017-02-20] MEDS ORDERED: DEXAMETHASONE INJ 10 MG in SODIUM CHLORIDE 0.9% 50 ML IV ONE (10:50)
[2017-02-20] MEDS ORDERED: PACLitaxel 225 MG in SODIUM CHLORIDE 0.9% 250 ML IV ONE (10:50)
[2017-02-20] MEDS ORDERED: SODIUM CHLORIDE 0.9% IV ONE (10:50)
[2017-02-20] MEDS ORDERED: CARBOPLATIN IV ONE (10:50)
[2017-02-20] MEDS ORDERED: GRANISETRON 1 MG/1 ML VIAL IV SCH (10:50)
[2017-02-20] MEDS ORDERED: FAMOTIDINE 20 MG/2 ML VIAL IV ONE (10:50)
[2017-02-20] MEDS ORDERED: diphenhydrAMINE 50 MG/1 ML VIAL IV ONE (10:50)
[2017-02-21] MEDS: LEVOTHYROXINE 88 MCG TABLET PO SCH (06:12)
--- NOTE | 2017-02-21 09:01 | Hospitalist Progress Note ---
Assessment and Plan - Time spent with patient Time spent with patient: Less than 30 minutes (1) Ovarian cancer Status: Acute Assessment and plan: Patient noted to have metastatic ovarian carcinoma and was initiated on chemotherapy yesterday. She will be seen by oncology later today and a decision made as to possible discharge. Current Visit: Yes (2) Hypertension Status: Chronic Assessment and plan: Currently well controlled. Continue current regimen. Current Visit: Yes Hospitalist: Subjective Interval history: Patient is seen and chart is been examined. 86-year-old female was admitted with ascites and found to have metastatic ovarian carcinoma. She has been seen by oncology and initiated chemotherapy yesterday. She voices no complaints at this time. Exam - Constitutional Vitals: Period Temp Pulse Resp BP Sys/Lim Pulse Ox Last 24 Hr 96.8 F-98.7 F 52-73 14-20 109-140/52-87 90-93 General appearance: no acute distress - Head Head exam: Present: normocephalic, atraumatic - Eye Eye exam: Present: EOMI Pupils: Present: ONI - ENT ENT exam: Present: normal oropharynx - Neck Neck exam: Present: normal inspection - Respiratory Respiratory exam: Present: clear to auscultation bilaterally - Cardiovascular Cardiovascular exam: Present: regular rate and rhythm - GI/Abdominal GI/Abdominal exam: Present: distended, soft. Absent: tenderness - Extremities Exam Extremities exam: Absent: calf tenderness, edema - Neurological Exam Neurological exam: Present: alert, oriented X3 - Skin Skin exam: Present: warm, dry. Absent: rash Results - Labs CBC & BMP: 02/20/17 04:11 02/20/17 04:11 Lab Results: I have reviewed the past 24 hour labs Quality Measures - VTE Contraindication to Pharmacological VTE Prophylaxis: Active Bleeding
[2017-02-21] MEDS: CYANOCOBALAMIN 1000 MCG/1 ML VIAL SUBCUT SCH (09:08)
[2017-02-21] MEDS: PANTOPRAZOLE 40 MG TABLET PO SCH ×2 (09:08→20:07)
[2017-02-21] MEDS ORDERED: IRON DEXTRAN 1,000 MG in SODIUM CHLORIDE 0.9% 500 ML IV ONE (09:34)
[2017-02-21] MEDS ORDERED: IRON DEXTRAN 25 MG in SYRINGE 1 EACH IV ONE (09:34)
[2017-02-21] MEDS ORDERED: ACETAMINOPHEN 500 MG TABLET PO ONE (09:35)
[2017-02-21] MEDS ORDERED: DEXAMETHASONE INJ 10 MG in SODIUM CHLORIDE 0.9% 50 ML IV ONE (09:35)
[2017-02-21] MEDS ORDERED: diphenhydrAMINE 50 MG/1 ML VIAL IV ONE (09:35)
[2017-02-21] MEDS: SODIUM CHLORIDE 0.9% 1,000 ML IV SCH (09:58)
--- NOTE | 2017-02-21 09:58 | Event Note ---
Have discussed with Dr. Bustillo. He is agreed to take her in transfer to his service. Will sign off this time. Appreciate your assistance. please do not hesitate to call from may be of any further help.
--- NOTE | 2017-02-21 15:06 | Discharge Summary ---
Hospital Course - Hospital Course Hospital Course: - 86 y/o WF admitted with abd swelling and N/V. She was found to have newly diagnosed ovarian cancer with diffuse peritoneal involvement - We started palliative Taxol/Carbo on 02/20/17 - Pt tolerated chemo well - She is also iron deficient and was given IV Infed on 02/21/17 - Pt wants to be discharged home today. Family is requesting Home Health and home PT. - She will need to see me in 3 weeks for her next dose of chemo. I will have my nurse call her later this week with her appt. - Time spent with patient Time with patient DS: Greater than 30 minutes Diagnosis - Discharge Diagnosis (1) Peritoneal carcinoma Status: Acute (2) Malignant ascites Status: Acute (3) Ovarian cancer Status: Acute Discharge Plan - Discharge Data Disposition: Home Health Service Condition at Discharge: Stable Discharge Diet: advance to your usual diet Activity: resume usual activities as tolerated Hygiene: no restrictions Weight Bearing at Discharge: full weight bearing Contact your physician if you experience:: fever over 101, Nausea/Vomiting - Discharge Medications New Ondansetron Tab [Zofran Tab] 4 mg PO Q6HR PRN #20 tablet PRN Reason: Nausea Continue Polyethylene Glycol Powder [Miralax] 17 gm PO DAILY PRN PRN Reason: Constipation Magnesium Citrate 138 ml PO DAILY Levothyroxine Tab [Synthroid Tab] 88 mcg PO DAILY Omeprazole [Prilosec] 20 mg PO BID Discontinued Losartan/Hydrochlorothiazide [Losartan-Hctz 100-12.5 mg Tab] 0.5 each PO DAILY Metoprolol Tartrate 12.5 mg PO DAILY Cyanocobalamin Inj [Vitamin B12 Inj] 1,000 mcg SUBCUT DAILY Pravastatin Sodium 80 mg PO BEDTIME - Follow Up or Referral - Forms/Instructions Exam - Constitutional Vitals: Period Temp Pulse Resp BP Sys/Lim Pulse Ox Last 24 Hr 96.6 F-98.7 F 52-67 14-20 109-135/52-87 90-93 Discharge Results Procedures and tests throughout hospitalization: Pending Orders 02/15/17 14:24 Cytology Request Routine 02/19/17 09:53 Cancer Antigen 125 Routine 02/20/17 14:30 Occult Blood, Stool Routine 02/22/17 04:00 Basic Metabolic Panel IN AM Comp Blood Count Auto Diff IN AM Magnesium IN AM DS: Provider Date of admission: 02/15/17 11:55 Primary care physician: . No PCP Attending physician on admission: Erickson Sidhu MD Consults: 02/18/17 15:12 Consult to Physician [CONS] Routine Comment: Ovarian cancer, malignant ascites Consulting Provider: Dre Bustillo Consult to Specialist Group: Oncology When should Consulting Provider be notified: Now Person Notified: Dr. Bustillo Date Notified: 02/18/17 Time Notified: 15:29 02/21/17 09:36 Consult to Physical Therapy [CONS] Routine Reason for Physical Therapy: Evaluate and Treat 02/21/17 15:01 Consult to Case Mgmt/Social Srvs [CONS] Routine Reason for Case Mgmt/Social Srvs: Home Health Consult Comment: Needs RN,also assess for physical therapy Discharging clinician: Dre Bustillo MD
[2017-02-21] MEDS: ONDANSETRON 4 MG/2 ML VIAL IV PRN (19:08)
[2017-02-21] MEDS ORDERED: guaiFENesin 200 MG/10 ML UDCUP PO PRN (20:16)
[2017-02-21] MEDS ORDERED: ALPRAZolam 0.25 MG TABLET PO PRN (20:16)
[2017-02-21] MEDS ORDERED: MYLANTA/LIDO VISC 2:1 300 ML BOTTLE SWISH/SWAL PRN (20:16)
[2017-02-21] MEDS ORDERED: ALUMINUM/MAGNES/SIMETH MAX STR 30 ML UDCUP PO PRN (20:16)
[2017-02-21] MEDS ORDERED: BENZTROPINE 2 MG/2 ML AMP IV PRN (20:16)
[2017-02-21] MEDS ORDERED: ACETAMINOPHEN 325 MG TABLET PO PRN (20:16)
[2017-02-21] MEDS ORDERED: MAGNESIUM HYDROXIDE SUSP 30 ML UDCUP PO PRN (20:16)
[2017-02-21] MEDS ORDERED: traMADol 50 MG TABLET PO PRN (20:16)
[2017-02-21] MEDS ORDERED: diphenhydrAMINE CAP 25 MG CAPSULE PO PRN (20:16)
[2017-02-21] MEDS ORDERED: TEMAZEPAM 7.5 MG CAPSULE PO PRN (20:16)
[2017-02-21] MEDS ORDERED: chlorproMAZINE 25 MG TABLET PO PRN (20:16)
[2017-02-21] MEDS ORDERED: chlorproMAZINE INJ 25 MG in SODIUM CHLORIDE 0.9% 100 ML IV PRN (20:16)
[2017-02-21] MEDS ORDERED: PROMETHAZINE INJ 25 MG in SODIUM CHLORIDE 0.9% 50 ML IV PRN (20:16)
[2017-02-21] MEDS ORDERED: LACTULOSE 20 GM/30 ML UDCUP PO PRN (20:16)
[2017-02-21] MEDS ORDERED: chlorproMAZINE INJ 50 MG in SODIUM CHLORIDE 0.9% 100 ML IV PRN (20:16)
[2017-02-21] MEDS ORDERED: ONDANSETRON 4 MG/2 ML VIAL IV PRN (20:16)
[2017-02-21] MEDS ORDERED: MYLANTA/LIDO VISC 2:1 300 ML BOTTLE SWISH/SPIT PRN (20:16)
[2017-02-21] MEDS ORDERED: LOPERAMIDE 2 MG CAPSULE PO PRN ×2 (20:16)
[2017-02-22 01:48] LABS: Hematocrit 28.2 VOL% (35.7-47.0); Hemoglobin 9.1 GM/DL (12.0-16.0); Immature Granulocytes % 1.2 %; Immature Granulocytes Absolute 0.12 #; Lymphocytes # 0.7 10*3/uL (1.4-4.0); Lymphocytes % 7.3 % (21.3-54.2); Mean Corpuscular HGB Conc 32.3 GM/DL (32-36); Mean Corpuscular Hemoglobin 28 PG (27-34); Mean Corpuscular Volume 85.5 FL (87-102); Mean Platelet Volume 9.6 FL (9.6-12.0); Monocytes # 0.2 10*3/uL (0.11-0.8); Monocytes % 1.9 % (1.7-12.7); Neutrophils # 8.9 10*3/uL (1.4-7.4); Neutrophils % 89.6 % (38.7-73.9); Platelet Count 439 T/CUMM (130-400); Red Cell Distribution Width 15.1 % (9.3-17.3)
[2017-02-22 02:14] LABS: Calcium 8.2 MG/DL (8.5-10.1); Magnesium 2.5 MG/DL (1.8-2.4); Osmolality,Calculated 277.8 MOS/KG (273-304); Potassium 5.4 MMOL/L (3.5-5.1)
[2017-02-22] MEDS: LEVOTHYROXINE 88 MCG TABLET PO SCH (06:52)
[2017-02-22] MEDS ORDERED: FUROSEMIDE 20 MG/2 ML VIAL IV ONE (07:46)
--- NOTE | 2017-02-22 07:49 | Oncology Progress Note ---
Assessment and Plan (1) Peritoneal carcinoma Status: Acute Current Visit: Yes (2) Malignant ascites Status: Acute Current Visit: Yes (3) Ovarian cancer Status: Acute Current Visit: Yes Oncology Subjective PN Interval history: Ms William did not go home yesterday. She began to feel weak and tired yesterday evening and requested to stay overnight. She also had some decrease in her oxygen levels and is now placed on 2 L nasal cannula. Her family has now decided that they do not want to go home and would like to consider swing bed arrangements. We will keep her in the hospital today and begin working on this tomorrow once case management returns. I will give her a small dose of IV Lasix today to see if this helps improve her oxygen levels. She was on IV fluid up until yesterday. Her recent CT scan showed mild bilateral pleural effusions will repeat a chest x-ray today to be certain of these have not increased. On exam I do not hear any audible wheezes or crackles. She did have some decreased breath sounds at the base. She does not have significant peripheral edema. Her motivation to get out of bed seems quite low. She states that she wants to do treatment but I am unsure how truly motivated they are to overcome her current deconditioning. Exam - Constitutional Vitals: Period Temp Pulse Resp BP Sys/Lim Pulse Ox Last 24 Hr 96.6 F-98.2 F 52-67 18-20 108-140/56-60 90-94 General appearance: normal weight, no acute distress - Head Head Exam: Present: normocephalic, atraumatic - Eye Eye Exam: Present: EOMI Pupils: Present: PERRL - ENT ENT exam: Present: normal exam, normal oropharynx - Neck Neck exam: Absent: lymphadenopathy, thyromegaly - Respiratory Respiratory exam: Present: CTAB. Absent: accessory muscle use, wheezes - Cardiovascular Cardiovascular exam: Present: RRR. Absent: JVD, systolic murmur - GI/Abdominal GI/Abdominal exam: Present: soft. Absent: ascites, distended, firm, mass - Neurological Exam Neurological exam: Present: alert, oriented X3 - Psychiatric Psychiatric exam: Present: normal affect, normal mood - Skin Skin exam: Present: warm, dry Results - Labs CBC & BMP: 02/22/17 01:24 02/22/17 06:18 Lab Results: I have reviewed the past 24 hour labs Quality Measures - VTE Contraindication to Pharmacological VTE Prophylaxis: Active Bleeding Specialty Discharge - Follow Up or Referrals
--- NOTE | 2017-02-22 08:26 | XRay Report ---
2 view chest. Indication: Hypoxia. Comparison: February 15, 2017. The heart is normal in size. There is a large hiatal hernia. The lung volumes are small. The pulmonary vasculature is normal. There is worsening atelectasis at each lung base. Small bilateral pleural effusions are present. The osseous structures are diffusely demineralized. Bridging osteophytes are noted within the thoracic spine. Impression: Worsening basilar atelectasis. Small bilateral pleural effusions. Large hiatal hernia. PROCEDURE INTERPRETED AT [facility] DEPARTMENT OF RADIOLOGY Final Report Signed by: Dr. Lorena Pratt
[2017-02-22] MEDS: SODIUM CHLORIDE 0.9% 1,000 ML IV SCH (08:35)
[2017-02-22] MEDS: PANTOPRAZOLE 40 MG TABLET PO SCH ×2 (08:39→20:20)
[2017-02-22] MEDS: CYANOCOBALAMIN 1000 MCG/1 ML VIAL SUBCUT SCH (08:39)
--- NOTE | 2017-02-23 07:47 | Oncology Progress Note ---
Assessment and Plan (1) Peritoneal carcinoma Status: Acute Current Visit: Yes (2) Malignant ascites Status: Acute Current Visit: Yes (3) Ovarian cancer Status: Acute Current Visit: Yes Oncology Subjective PN Interval history: This is an 86-year-old white female with metastatic ovarian cancer who received chemotherapy 3 days ago and has remained in the hospital since that time due to weakness. She lives alone so we were scared sending her home. She be better served by going to swing bed for 1-2 weeks to regain her strength. She required paracentesis earlier in the hospital stay. Her abdomen is slightly distended but soft. It is nowhere near what it was at admission. I think she is at a place now that we can have her discharge whenever a swing bed is arranged. She will need to come back to see me in 3 weeks in clinic. Exam - Constitutional Vitals: Period Temp Pulse Resp BP Sys/Lim Pulse Ox Last 24 Hr 96.7 F-98.1 F 67-73 18-20 114-145/56-63 91-96 General appearance: normal weight, no acute distress - Head Head Exam: Present: normocephalic, atraumatic - Eye Eye Exam: Present: EOMI Pupils: Present: PERRL - ENT ENT exam: Present: normal exam, normal oropharynx - Neck Neck exam: Absent: lymphadenopathy, thyromegaly - Respiratory Respiratory exam: Present: CTAB. Absent: wheezes - Cardiovascular Cardiovascular exam: Present: RRR. Absent: irregular rhythm, JVD - GI/Abdominal GI/Abdominal exam: Present: ascites, distended, soft. Absent: firm, mass - Neurological Exam Neurological exam: Present: alert, oriented X3, CN II-XII intact - Psychiatric Psychiatric exam: Present: normal affect, normal mood - Skin Skin exam: Present: warm, dry Results - Labs CBC & BMP: 02/22/17 01:24 02/22/17 06:18 Lab Results: I have reviewed the past 24 hour labs Quality Measures - VTE Contraindication to Pharmacological VTE Prophylaxis: Active Bleeding Specialty Discharge - Follow Up or Referrals
[2017-02-23] MEDS: PANTOPRAZOLE 40 MG TABLET PO SCH (08:09)
[2017-02-23] MEDS: CYANOCOBALAMIN 1000 MCG/1 ML VIAL SUBCUT SCH (08:09)
[2017-02-23] MEDS: LEVOTHYROXINE 88 MCG TABLET PO SCH (08:09)
[2017-02-23 13:00] VITALS: BP 134/70
--- NOTE | 2017-02-23 13:28 | Discharge Summary ---
Hospital Course - Hospital Course Hospital Course: - 86 y/o WF admitted with abd swelling and N/V. She was found to have newly diagnosed ovarian cancer with diffuse peritoneal involvement - This was diagnosed from a 4L paracentesis - We started palliative Taxol/Carbo on 02/20/17 - Pt tolerated chemo well - She was also iron deficient and was given IV Infed on 02/21/17 - She is being discharged to a swing bed today - She will need to see me in 3 weeks for her next dose of chemo. She will need CBC/CMP/CA125/CEA done at next appt - Time spent with patient Time with patient DS: Greater than 30 minutes Diagnosis - Discharge Diagnosis (1) Peritoneal carcinoma Status: Acute (2) Malignant ascites Status: Acute (3) Ovarian cancer Status: Acute Specialty Discharge - Follow Up or Referrals Discharge Plan - Discharge Data Disposition: Disch/Xfer-Ipshort Term Hos Condition at Discharge: Stable Discharge Diet: advance to your usual diet Activity: as per physical therapy Hygiene: no restrictions Contact your physician if you experience:: fever over 101 - Discharge Medications New Ondansetron Tab [Zofran Tab] 4 mg PO Q6HR PRN #20 tablet PRN Reason: Nausea Continue Polyethylene Glycol Powder [Miralax] 17 gm PO DAILY PRN PRN Reason: Constipation Magnesium Citrate 138 ml PO DAILY Levothyroxine Tab [Synthroid Tab] 88 mcg PO DAILY Omeprazole [Prilosec] 20 mg PO BID Discontinued Losartan/Hydrochlorothiazide [Losartan-Hctz 100-12.5 mg Tab] 0.5 each PO DAILY Metoprolol Tartrate 12.5 mg PO DAILY Cyanocobalamin Inj [Vitamin B12 Inj] 1,000 mcg SUBCUT DAILY Pravastatin Sodium 80 mg PO BEDTIME - Follow Up or Referral - Forms/Instructions Instructions: Ovarian Cancer (DC), Ovarian Cancer (GEN), Ascites (DC), Ascites (GEN) Exam - Constitutional Vitals: Period Temp Pulse Resp BP Sys/Lim Pulse Ox Last 24 Hr 97.3 F-98.6 F 70-99 16-20 114-134/56-70 92-99 Discharge Results Procedures and tests throughout hospitalization: Pending Orders 02/15/17 14:24 Cytology Request Routine 02/19/17 09:53 Cancer Antigen 125 Routine 02/20/17 14:30 Occult Blood, Stool Routine DS: Provider Date of admission: 02/15/17 11:55 Primary care physician: Dre Bustillo MD Attending physician on admission: Erickson Sidhu MD Consults: 02/18/17 15:12 Consult to Physician [CONS] Routine Comment: Ovarian cancer, malignant ascites Consulting Provider: Dre Bustillo Consult to Specialist Group: Oncology When should Consulting Provider be notified: Now Person Notified: Dr. Bustillo Date Notified: 02/18/17 Time Notified: 15:29 02/21/17 09:36 Consult to Physical Therapy [CONS] Routine Reason for Physical Therapy: Evaluate and Treat 02/21/17 15:01 Consult to Case Mgmt/Social Srvs [CONS] Routine Reason for Case Mgmt/Social Srvs: Home Health Consult Comment: Needs RN,also assess for physical therapy 02/23/17 07:48 Consult to Case Mgmt/Social Srvs [CONS] Routine Reason for Case Mgmt/Social Srvs: Swingbed/SNF/Detention Discharging clinician: Dre Bustillo MD
[2017-02-23] MEDS: ALUMINUM/MAGNES/SIMETH MAX STR 30 ML UDCUP PO PRN (15:04)
== END 2017-02-23 16:10 | disposition swing bed (61) | DRG 755 ==
LOC: N.ED 10:26 → N.EDINP 11:55 → SUATTDRO 11:55 → N.2E 12:49 → N.4E 02-20 10:55
PROVIDERS: ADMIT Internal Medicine Geriatric Medicine; ATTEND Specialist

== ENCOUNTER 2018-06-25 23:00 | Inpatient (IN) ==
[2018-06-26] MEDS ORDERED: ONDANSETRON 4 MG/2 ML VIAL IV STA (00:44)
[2018-06-26] MEDS ORDERED: SODIUM CHLORIDE 0.9% 1,000 ML IV STA (00:44)
[2018-06-26 01:01] LABS: Basophils % 0.2 % (0.0-0.8); Eosinophils # 0.1 10*3/uL (0.0-0.87); Eosinophils % 0.7 % (0.00-10.9); Hematocrit 32.9 VOL% (35.7-47.0); Hemoglobin 10.3 GM/DL (12.0-16.0); Immature Granulocytes % 0.3 %; Immature Granulocytes Absolute 0.03 #; Lymphocytes # 1.4 10*3/uL (1.4-4.0); Lymphocytes % 15.5 % (21.3-54.2); Mean Corpuscular HGB Conc 31.3 GM/DL (32-36); Mean Corpuscular Hemoglobin 30 PG (27-34); Mean Corpuscular Volume 95.6 FL (87-102); Mean Platelet Volume 9.3 FL (9.6-12.0); Monocytes # 0.4 10*3/uL (0.11-0.8); Monocytes % 4.9 % (1.7-12.7); Neutrophils % 78.4 % (38.7-73.9); Platelet Count 276 T/CUMM (130-400); Red Blood Count 3.44 MC/CUMM (3.8-5.5); Red Cell Distribution Width 16.2 % (9.3-17.3)
[2018-06-26 01:20] LABS: Albumin 2.6 G/DL (3.4-5.0); Bilirubin,Total 0.4 MG/DL (0.2-1.0); Calcium 9.5 MG/DL (8.5-10.1); Potassium 3.4 MMOL/L (3.5-5.1); Total Protein 6.7 G/DL (6.4-8.3)
[2018-06-26] MEDS ORDERED: PANTOPRAZOLE INJ 80 MG in SODIUM CHLORIDE 0.9% 100 ML IV ONE (02:22)
[2018-06-26] MEDS ORDERED: PANTOPRAZOLE INJ 200 MG in SODIUM CHLORIDE 0.9% 250 ML IV SCH (02:30)
[2018-06-26] MEDS ORDERED: POTASSIUM CHLORIDE INJ 20 MEQ in SODIUM CHLORIDE 0.45% 1,000 ML IV SCH (03:30)
[2018-06-26 03:42] LABS: Apearance,Urine CLEAR (Clear); Bilirubin,Urine Negative (Negative); Blood, Urine Negative (Negative); Glucose,Urine (UA) Negative (Negative); Ketones,Urine Negative (Negative); Mucus,Urine Occasional /LPF (Occasional); Nitrite,Urine Negative (Negative); Protein,Urine 100 MG/DL; RBC,Urine 2 /HPF (0-4); Renal Epithelial Cells,Urine Occasional /HPF (<1); Squamous Epithelial Cell,Urine Occasional /HPF (0-10); Transitional Epi Cells,Urine Occasional /HPF (<1); Urine Color Yellow (Yellow); Urine Specific Gravity 1.019 (1.001-1.035); WBC,Urine 70 /HPF (0-6)
[2018-06-26] MEDS: SODIUM CHLOR 0.45% KCL 20 MEQ 20 MEQ/1,000 ML BAG IV SCH ×2 (04:31→19:20)
[2018-06-26] MEDS: ONDANSETRON 4 MG/2 ML VIAL IV PRN ×2 (06:05→10:03)
[2018-06-26] MEDS: LEVOTHYROXINE 100 MCG TABLET PO SCH (06:13)
[2018-06-26] MEDS ORDERED: PROMETHAZINE 25 MG/1 ML VIAL IM PRN (07:40)
[2018-06-26 08:12] LABS: Basophils % 0.2 % (0.0-0.8); Eosinophils # 0.1 10*3/uL (0.0-0.87); Eosinophils % 0.7 % (0.00-10.9); Hematocrit 30.1 VOL% (35.7-47.0); Hemoglobin 9.2 GM/DL (12.0-16.0); Immature Granulocytes % 0.4 %; Immature Granulocytes Absolute 0.03 #; Lymphocytes # 1.3 10*3/uL (1.4-4.0); Lymphocytes % 15.9 % (21.3-54.2); Mean Corpuscular HGB Conc 30.6 GM/DL (32-36); Mean Corpuscular Hemoglobin 30 PG (27-34); Mean Corpuscular Volume 97.1 FL (87-102); Monocytes # 0.5 10*3/uL (0.11-0.8); Monocytes % 6.2 % (1.7-12.7); Neutrophils # 6.2 10*3/uL (1.4-7.4); Neutrophils % 76.6 % (38.7-73.9); Platelet Count 248 T/CUMM (130-400); Red Cell Distribution Width 16.3 % (9.3-17.3); White Blood Count 8.1 T/CUMM (4-12)
[2018-06-26 08:32] LABS: Albumin 2.1 G/DL (3.4-5.0); Bilirubin,Total 0.6 MG/DL (0.2-1.0); Potassium 3.5 MMOL/L (3.5-5.1); Total Protein 6.1 G/DL (6.4-8.3)
[2018-06-26 09:04] LABS: PT Patient Result 10.1 SECS; Partial Thromboplastin Time 22.8 SECS (0-40)
[2018-06-26] MEDS: PANTOPRAZOLE 40 MG VIAL IV SCH ×2 (09:58→21:18)
[2018-06-26] MEDS ORDERED: BACLOFEN 10 MG TABLET PO PRN (10:49)
[2018-06-26] MEDS: MEMANTINE 10 MG TABLET PO SCH (21:18)
[2018-06-27 05:08] LABS: Basophils % 0.2 % (0.0-0.8); Eosinophils # 0.1 10*3/uL (0.0-0.87); Eosinophils % 2.5 % (0.00-10.9); Hematocrit 29.9 VOL% (35.7-47.0); Hemoglobin 9.1 GM/DL (12.0-16.0); Immature Granulocytes % 0.4 %; Immature Granulocytes Absolute 0.02 #; Lymphocytes # 1.4 10*3/uL (1.4-4.0); Lymphocytes % 23.8 % (21.3-54.2); Mean Corpuscular HGB Conc 30.4 GM/DL (32-36); Mean Corpuscular Hemoglobin 30 PG (27-34); Mean Corpuscular Volume 98.4 FL (87-102); Mean Platelet Volume 9.9 FL (9.6-12.0); Monocytes # 0.3 10*3/uL (0.11-0.8); Monocytes % 5.6 % (1.7-12.7); Neutrophils # 3.8 10*3/uL (1.4-7.4); Neutrophils % 67.5 % (38.7-73.9); Platelet Count 216 T/CUMM (130-400); Red Blood Count 3.04 MC/CUMM (3.8-5.5); Red Cell Distribution Width 16.4 % (9.3-17.3); White Blood Count 5.7 T/CUMM (4-12)
[2018-06-27 05:21] LABS: Calcium 8.3 MG/DL (8.5-10.1); Osmolality,Calculated 276.5 MOS/KG (273-304); Potassium 3.7 MMOL/L (3.5-5.1)
[2018-06-27] MEDS: LEVOTHYROXINE 100 MCG TABLET PO SCH (06:01)
[2018-06-27] MEDS: SODIUM CHLOR 0.45% KCL 20 MEQ 20 MEQ/1,000 ML BAG IV SCH (09:19)
[2018-06-27] MEDS: SERTRALINE 25 MG TABLET PO SCH (09:20)
[2018-06-27] MEDS: MEMANTINE 10 MG TABLET PO SCH ×2 (09:20→20:32)
[2018-06-27] MEDS: PANTOPRAZOLE 40 MG VIAL IV SCH ×2 (09:20→20:34)
[2018-06-27] MEDS: amLODIPine 10 MG TABLET PO SCH (09:20)
[2018-06-27] MEDS: buPROPion SR 150 MG TABLET PO SCH (09:20)
[2018-06-27] MEDS ORDERED: POTASSIUM CHLORIDE RIDER 20 MEQ in PREMIX 1 EACH IV PRN (11:06)
[2018-06-27] MEDS ORDERED: MAGNESIUM SULF RIDER 4 GM in PREMIX 1 EACH IV PRN (11:06)
[2018-06-27] MEDS ORDERED: POTASSIUM CHLORIDE 20 MEQ TABLET PO PRN (11:06)
[2018-06-27] MEDS ORDERED: MAGNESIUM SULF RIDER 2 GM in PREMIX 1 EACH IV PRN (11:06)
[2018-06-27] MEDS ORDERED: POTASSIUM CHLORIDE RIDER 10 MEQ in PREMIX 1 EACH IV PRN (11:06)
[2018-06-27] MEDS: ONDANSETRON 4 MG/2 ML VIAL IV PRN (18:56)
[2018-06-28 04:47] LABS: Basophils % 0.3 % (0.0-0.8); Eosinophils # 0.1 10*3/uL (0.0-0.87); Eosinophils % 1.7 % (0.00-10.9); Hematocrit 26.3 VOL% (35.7-47.0); Hemoglobin 8.1 GM/DL (12.0-16.0); Immature Granulocytes % 0.6 %; Immature Granulocytes Absolute 0.04 #; Lymphocytes # 1.5 10*3/uL (1.4-4.0); Lymphocytes % 23.1 % (21.3-54.2); Mean Corpuscular HGB Conc 30.8 GM/DL (32-36); Mean Corpuscular Hemoglobin 30 PG (27-34); Mean Platelet Volume 9.7 FL (9.6-12.0); Monocytes # 0.4 10*3/uL (0.11-0.8); Monocytes % 6.1 % (1.7-12.7); Neutrophils # 4.4 10*3/uL (1.4-7.4); Neutrophils % 68.2 % (38.7-73.9); Platelet Count 203 T/CUMM (130-400); Red Blood Count 2.71 MC/CUMM (3.8-5.5); Red Cell Distribution Width 16.5 % (9.3-17.3); White Blood Count 6.4 T/CUMM (4-12)
[2018-06-28 04:55] LABS: Calcium 7.7 MG/DL (8.5-10.1); Osmolality,Calculated 276.7 MOS/KG (273-304); Potassium 3.9 MMOL/L (3.5-5.1)
[2018-06-28] MEDS: LEVOTHYROXINE 100 MCG TABLET PO SCH ×2 (06:03→09:12)
[2018-06-28] MEDS: SERTRALINE 25 MG TABLET PO SCH (09:12)
[2018-06-28] MEDS: buPROPion SR 150 MG TABLET PO SCH (09:13)
[2018-06-28] MEDS: MEMANTINE 10 MG TABLET PO SCH (09:14)
[2018-06-28] MEDS: amLODIPine 10 MG TABLET PO SCH (09:14)
[2018-06-28] MEDS: PANTOPRAZOLE 40 MG VIAL IV SCH (09:15)
[2018-06-28] MEDS ORDERED: HEPARIN LOCK FLUSH 500 UNIT/5 ML SYRINGE IV ONE (12:36)
[2018-06-28] MEDS: SODIUM CHLOR 0.45% KCL 20 MEQ 20 MEQ/1,000 ML BAG IV SCH (12:40)
[2018-06-28 21:20] VITALS: BP 115/55
== END 2018-06-28 18:00 | disposition home health service (06) | DRG 755 ==
LOC: N.ED 23:00 → N.EDINP 06-26 03:06 → N.4E 06-26 03:53
PROVIDERS: ADMIT Internal Medicine; ATTEND Internal Medicine

== ENCOUNTER 2018-07-05 22:11 | Inpatient (IN) ==
[2018-07-05] MEDS ORDERED: ONDANSETRON 4 MG/2 ML VIAL IV STA (23:01)
[2018-07-05] MEDS ORDERED: PANTOPRAZOLE 40 MG VIAL IV STA (23:01)
[2018-07-05] MEDS ORDERED: SODIUM CHLORIDE 0.9% 1,000 ML IV STA (23:01)
[2018-07-05 23:51] LABS: Bilirubin,Total 0.5 MG/DL (0.2-1.0); Calcium 8.7 MG/DL (8.5-10.1); Lactic Acid 1.1 MMOL/L (0.4-2.0); Osmolality,Calculated 283.3 MOS/KG (273-304); Potassium 3.6 MMOL/L (3.5-5.1); Total Protein 5.7 G/DL (6.4-8.3)
[2018-07-05 23:58] LABS: Basophils % 0.3 % (0.0-0.8); Eosinophils % 0.6 % (0.00-10.9); Hematocrit 25.3 VOL% (35.7-47.0); Hemoglobin 7.5 GM/DL (12.0-16.0); Immature Granulocytes % 0.4 %; Immature Granulocytes Absolute 0.03 #; Lymphocytes # 1.3 10*3/uL (1.4-4.0); Lymphocytes % 17.9 % (21.3-54.2); Mean Corpuscular HGB Conc 29.6 GM/DL (32-36); Mean Corpuscular Hemoglobin 30 PG (27-34); Mean Corpuscular Volume 99.6 FL (87-102); Mean Platelet Volume 11.2 FL (9.6-12.0); Monocytes # 0.4 10*3/uL (0.11-0.8); Monocytes % 5.2 % (1.7-12.7); Neutrophils # 5.3 10*3/uL (1.4-7.4); Neutrophils % 75.6 % (38.7-73.9); Platelet Count 169 T/CUMM (130-400); Red Blood Count 2.54 MC/CUMM (3.8-5.5); Red Cell Distribution Width 17.3 % (9.3-17.3); White Blood Count 7.1 T/CUMM (4-12)
[2018-07-06 00:04] LABS: Apearance,Urine CLOUDY (Clear); Bacteria,Urine Many /HPF (Few); Bilirubin,Urine Small mg/dL (Negative); Blood, Urine Negative (Negative); Glucose,Urine (UA) Negative (Negative); Ketones,Urine 5 mg/dL (Negative); Mucus,Urine Few /LPF (Occasional); Nitrite,Urine Negative (Negative); Protein,Urine 100 MG/DL; Urine Color Amber (Yellow); WBC,Urine 6 /HPF (0-6)
[2018-07-06] MEDS ORDERED: cefTRIAXone 1,000 MG in SODIUM CHLORIDE 0.9% 100 ML IV STA (00:06)
[2018-07-06] MEDS ORDERED: MAGNESIUM SULF RIDER 2 GM in PREMIX 1 EACH IV STA (00:14)
[2018-07-06] MEDS ORDERED: PROMETHAZINE 25 MG/1 ML VIAL IM PRN (01:59)
[2018-07-06] MEDS ORDERED: LACTULOSE 20 GM/30 ML UDCUP PO PRN (01:59)
[2018-07-06] MEDS ORDERED: ACETAMINOPHEN 325 MG TABLET PO PRN (01:59)
[2018-07-06] MEDS ORDERED: BACLOFEN 10 MG TABLET PO PRN (02:10)
[2018-07-06] MEDS: DEXTROSE 5% NACL 0.45% 1,000 ML IV SCH (02:30)
[2018-07-06 05:44] LABS: Basophils % 0.3 % (0.0-0.8); Eosinophils # 0.1 10*3/uL (0.0-0.87); Eosinophils % 1.2 % (0.00-10.9); Hematocrit 23.5 VOL% (35.7-47.0); Immature Granulocytes % 0.8 %; Immature Granulocytes Absolute 0.05 #; Lymphocytes # 1.7 10*3/uL (1.4-4.0); Lymphocytes % 28.2 % (21.3-54.2); Mean Corpuscular HGB Conc 29.8 GM/DL (32-36); Mean Corpuscular Hemoglobin 30 PG (27-34); Mean Corpuscular Volume 99.6 FL (87-102); Mean Platelet Volume 10.5 FL (9.6-12.0); Monocytes # 0.3 10*3/uL (0.11-0.8); Neutrophils # 3.9 10*3/uL (1.4-7.4); Neutrophils % 64.5 % (38.7-73.9); Platelet Count 166 T/CUMM (130-400); Red Blood Count 2.36 MC/CUMM (3.8-5.5); Red Cell Distribution Width 17.6 % (9.3-17.3)
[2018-07-06 05:45] LABS: Basophils % 0.3 % (0.0-0.8); Eosinophils # 0.1 10*3/uL (0.0-0.87); Eosinophils % 1.2 % (0.00-10.9); Hematocrit 22.1 VOL% (35.7-47.0); Hemoglobin 6.5 GM/DL (12.0-16.0); Immature Granulocytes % 0.5 %; Immature Granulocytes Absolute 0.03 #; Lymphocytes # 1.6 10*3/uL (1.4-4.0); Lymphocytes % 27.7 % (21.3-54.2); Mean Corpuscular HGB Conc 29.4 GM/DL (32-36); Mean Corpuscular Hemoglobin 30 PG (27-34); Mean Corpuscular Volume 102.8 FL (87-102); Mean Platelet Volume 10.4 FL (9.6-12.0); Monocytes # 0.3 10*3/uL (0.11-0.8); Monocytes % 5.4 % (1.7-12.7); Neutrophils # 3.8 10*3/uL (1.4-7.4); Neutrophils % 64.9 % (38.7-73.9); Platelet Count 157 T/CUMM (130-400); Red Blood Count 2.15 MC/CUMM (3.8-5.5); Red Cell Distribution Width 17.4 % (9.3-17.3); White Blood Count 5.9 T/CUMM (4-12)
[2018-07-06 05:55] LABS: Albumin 1.7 G/DL (3.4-5.0); Bilirubin,Total 0.5 MG/DL (0.2-1.0); Calcium 8.3 MG/DL (8.5-10.1); Potassium 3.3 MMOL/L (3.5-5.1); Total Protein 5.3 G/DL (6.4-8.3)
[2018-07-06 06:02] LABS: Folate 9.9 NG/ML (5.4-24.0); Vitamin B12 248 PG/ML (211-911)
[2018-07-06] MEDS: LEVOTHYROXINE 100 MCG TABLET PO SCH (06:26)
[2018-07-06 06:56] LABS: Sedimentation Rate-Westergren 138 MM/HR (0-30)
[2018-07-06] MEDS ORDERED: SODIUM CHLORIDE 0.9% 1,000 ML IV PRN (07:48)
[2018-07-06] MEDS: PANTOPRAZOLE 40 MG VIAL IV SCH ×2 (08:36→21:15)
[2018-07-06] MEDS: buPROPion SR 150 MG TABLET PO SCH (08:37)
[2018-07-06] MEDS: CYANOCOBALAMIN 1000 MCG/1 ML VIAL IM SCH (08:37)
[2018-07-06] MEDS: SUCRALFATE 1 GM/10 ML UDCUP PO SCH ×4 (08:37→21:00)
[2018-07-06] MEDS: DOCUSATE SODIUM 100 MG CAPSULE PO SCH ×2 (08:37→20:59)
[2018-07-06] MEDS: NYSTATIN 500,000 UNIT/5 ML UDCUP SWISH/SWAL SCH ×4 (08:37→20:59)
[2018-07-06] MEDS: MAGNESIUM OXIDE 400 MG TABLET PO SCH (08:38)
[2018-07-06] MEDS: POTASSIUM CHLORIDE RIDER 10 MEQ in PREMIX 1 EACH IV SCH ×3 (08:38→12:03)
[2018-07-06] MEDS: MEMANTINE 10 MG TABLET PO SCH ×2 (08:38→20:59)
[2018-07-06] MEDS: SERTRALINE 25 MG TABLET PO SCH (08:38)
[2018-07-06] MEDS: ONDANSETRON 4 MG/2 ML VIAL IV PRN (10:08)
[2018-07-06] MEDS ORDERED: HYDROmorphone 2 MG/1 ML VIAL IV PRN (10:22)
[2018-07-07] MEDS: cefTRIAXone 2,000 MG in SYRINGE 1 EACH IV SCH (00:27)
[2018-07-07] MEDS ORDERED: cefTRIAXone 1,000 MG in SYRINGE 1 EACH IV SCH (00:30)
[2018-07-07 04:56] LABS: Basophils % 0.3 % (0.0-0.8); Eosinophils # 0.2 10*3/uL (0.0-0.87); Eosinophils % 2.2 % (0.00-10.9); Hematocrit 30.4 VOL% (35.7-47.0); Hemoglobin 9.7 GM/DL (12.0-16.0); Immature Granulocytes % 0.6 %; Immature Granulocytes Absolute 0.04 #; Lymphocytes # 1.6 10*3/uL (1.4-4.0); Lymphocytes % 23.3 % (21.3-54.2); Mean Corpuscular HGB Conc 31.9 GM/DL (32-36); Mean Corpuscular Hemoglobin 30 PG (27-34); Mean Corpuscular Volume 95.3 FL (87-102); Mean Platelet Volume 10.5 FL (9.6-12.0); Monocytes # 0.4 10*3/uL (0.11-0.8); Monocytes % 5.5 % (1.7-12.7); Neutrophils # 4.6 10*3/uL (1.4-7.4); Neutrophils % 68.1 % (38.7-73.9); Platelet Count 135 T/CUMM (130-400); Red Blood Count 3.19 MC/CUMM (3.8-5.5); Red Cell Distribution Width 17.3 % (9.3-17.3); White Blood Count 6.7 T/CUMM (4-12)
[2018-07-07 05:19] LABS: Albumin 1.9 G/DL (3.4-5.0); Bilirubin,Total 0.4 MG/DL (0.2-1.0); Osmolality,Calculated 276.5 MOS/KG (273-304); Potassium 3.7 MMOL/L (3.5-5.1); Total Protein 5.9 G/DL (6.4-8.3)
[2018-07-07] MEDS: LEVOTHYROXINE 100 MCG TABLET PO SCH (06:13)
[2018-07-07] MEDS ORDERED: BISACODYL 10 MG SUPP RECTAL ONE (07:23)
[2018-07-07] MEDS: DOCUSATE SODIUM 100 MG CAPSULE PO SCH ×2 (10:07→20:52)
[2018-07-07] MEDS: CYANOCOBALAMIN 1000 MCG/1 ML VIAL IM SCH (10:07)
[2018-07-07] MEDS: NYSTATIN 500,000 UNIT/5 ML UDCUP SWISH/SWAL SCH ×4 (10:07→20:53)
[2018-07-07] MEDS: MAGNESIUM OXIDE 400 MG TABLET PO SCH (10:07)
[2018-07-07] MEDS: SUCRALFATE 1 GM/10 ML UDCUP PO SCH ×4 (10:08→20:54)
[2018-07-07] MEDS: buPROPion SR 150 MG TABLET PO SCH (10:08)
[2018-07-07] MEDS: PANTOPRAZOLE 40 MG VIAL IV SCH ×2 (10:08→20:53)
[2018-07-07] MEDS: MEMANTINE 10 MG TABLET PO SCH ×2 (10:08→20:52)
[2018-07-07] MEDS: SERTRALINE 25 MG TABLET PO SCH (10:09)
[2018-07-07] MEDS: DEXTROSE 5% NACL 0.45% 1,000 ML IV SCH ×2 (10:18→11:21)
[2018-07-07] MEDS: LACTULOSE 20 GM/30 ML UDCUP PO SCH ×3 (10:26→17:38)
[2018-07-07] MEDS: ONDANSETRON 4 MG/2 ML VIAL IV PRN (12:32)
[2018-07-08] MEDS: cefTRIAXone 2,000 MG in SYRINGE 1 EACH IV SCH (00:50)
[2018-07-08] MEDS: ONDANSETRON 4 MG/2 ML VIAL IV PRN (03:54)
[2018-07-08] MEDS: DEXTROSE 5% NACL 0.45% 1,000 ML IV SCH (04:00)
[2018-07-08] MEDS ORDERED: ONDANSETRON 4 MG/2 ML VIAL IV PRN (05:08)
[2018-07-08] MEDS: LEVOTHYROXINE 100 MCG TABLET PO SCH (06:35)
[2018-07-08] MEDS: SUCRALFATE 1 GM/10 ML UDCUP PO SCH ×2 (09:46→15:01)
[2018-07-08] MEDS: MEMANTINE 10 MG TABLET PO SCH (09:47)
[2018-07-08] MEDS: NYSTATIN 500,000 UNIT/5 ML UDCUP SWISH/SWAL SCH ×2 (09:47→15:01)
[2018-07-08] MEDS: buPROPion SR 150 MG TABLET PO SCH (09:47)
[2018-07-08] MEDS: MAGNESIUM OXIDE 400 MG TABLET PO SCH (09:47)
[2018-07-08] MEDS: SERTRALINE 25 MG TABLET PO SCH (09:47)
[2018-07-08] MEDS: DOCUSATE SODIUM 100 MG CAPSULE PO SCH (09:47)
[2018-07-08] MEDS: CYANOCOBALAMIN 1000 MCG/1 ML VIAL IM SCH (09:48)
[2018-07-08] MEDS: PANTOPRAZOLE 40 MG VIAL IV SCH (09:48)
[2018-07-08 12:12] VITALS: BP 127/73
== END 2018-07-08 15:02 | disposition home health service (06) | DRG 755 ==
LOC: EDBD → EDUNIT# → N.ED 22:11 → N.EDINP 22:11 → N.4E 07-06 01:37 → SUATTDRO 07-06 11:37
PROVIDERS: ADMIT Family Medicine; ATTEND Family Medicine